=== PATIENT | male | born 1960 | race Caucasian/White ===

== ENCOUNTER 2025-05-29 08:15 | Outpatient (AMB) | payer OTHER, SELFPAY ==
--- NOTE | 2025-05-29 09:29 | A.OFFVIS_ITS ---
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 Allergies No Known Allergies Allergy (Verified 05/29/25 09:30) Medication List - Last Reconciled 05/29/25 by Nazario Mccray MD albuterol sulfate 90 mcg/actuation (Ventolin HFA) 2 puffs inhalation Q6H PRN cetirizine (All Day Allergy (cetirizine)) 10 mg PO DAILY PRN fluticasone propion-salmeterol 100-50 mcg/dose (Wixela Inhub) 1 inh inhalation BID montelukast 10 mg PO QPM omeprazole 40 mg PO DAILY [VITAMIN D PO] HPI 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: Details: Start time: 9.22am, End time: 10.07am ?I spent 40 minutes speaking with the patient on the phone plus an additional 5 minutes reviewing and updating records for a total of 45 minutes HPI Comments Details: Previous weight loss efforts: Nutrisystem, exercise Wakes up: 7am, Sleeps: 10pm Breakfast: 7am (eggs, oatmeal, toast) Lunch: 12pm (pork, salad) Dinner: 6-7pm (same as lunch) Snacks: 9pm (sweets, cheese with crackers, popcorn) Exercise: has a rowing machine Beverages:Coffee (2-3 cups/d with creamer), Tea: none, Soda: 1-2/wk diet Coke, Juice: rarely, ETOH: 1-2/d (Jin and tonic) PFSH Medical History (Updated 05/29/25 @ 09:58 by Nazario Mccray MD) Asthma Obstructive sleep apnea on CPAP GERD (gastroesophageal reflux disease) BMI 38.0-38.9,adult Obesity Surgical History (Updated 05/07/25 @ 09:55 by Yara Collins CMA) History of bunionectomy History of repair of anterior cruciate ligament Hx of colonoscopy Family History (Updated 05/07/25 @ 09:56 by Yara Collins CMA) Mother Hypertension Diabetes Father Obesity Social History (Updated 05/07/25 @ 09:56 by Yara Collins CMA) Alcohol intake: current Patient Tobacco Use Status: Never used Tobacco Telehealth Telehealth Telehealth Platform: Telephone Location of provider rendering services: practice address Location of patient: address on file Patient Identification confirmed using: Name, : Yes Telehealth method: voice only Patient verbally consented to treatment: Yes Patient verbally consented to billing insurance company: Yes Patient informed of any privacy concerns related to visit: Yes Minutes spent on Phone/Video with Pt.: 45 Assessment & Plan Assessment & Plan (1) Obesity: Code(s): E66.9 - Obesity, unspecified Category: Medical Qualifiers: Obesity type: due to excess calories Obesity classification: adult class 2 (BMI 35 - 39.9) Serious obesity comorbidity presence: with serious comorbidity Body mass index: BMI 38.0-38.9 Qualified Code(s): E66.01 - Morbid (severe) obesity due to excess calories; Z68.38 - Body mass index [BMI] 38.0- 38.9, adult Plan: 1.? As we discussed, based on your present BMI you are approximately 90lbs overweight. In my opinion, for any weight loss strategy to be successful should have a high probability to help you lose at least 80lbs out of 90lbs of the extra weight you carry. We discussed in detail the available therapeutic options: 1) our lifestyle intervention program that has an average weight loss of 10% in 3 months.?Some patients continue it for longer and have lost over 50lbs but this is not common. Our lifestyle program can be provided by me or by using our software zenaida, the [employer] zenaida. I will provide you with a link to use the zenaida if you choose to do so. We use protein shakes and protein bars to replace some of the meals of the day and cover your appetite better. We will decide together the exact combination. 2) Weight loss medications: these can be used in conjunction with our lifestyle program or you may choose to use them without following a lifestyle program from my program but your own. As we discussed, your [employer] insurance requires you to do the lifestyle program for 3 months before they approve the medications. Medicare does not cover GLP-1 agonists unless you have diabetes. We also discussed that you can self pay for the first 3 months and the cost is $249 for the first month and $499 for any other month thereafter. These payments go to the drug company directly and not to us. 3) We also discussed about the lap sleeve gastrectomy. In my opinion this is the best option to solve your problem based on your situation and should be used in conjunction with the two previous options. A good strategy to make this decision to proceed with surgery, is to set some goals with the lifestyle intervention and medication options: If you don't lose at least 10lbs the first 6 weeks after starting the program or at least 10% in 3 months.?I emphasized the importance of close follow-up, adherence to instructions and good communication. The surgery does not replace the need to change your lifestlyle which is the cause of the obesity problem. The surgery provides the motivation to try again to change your lifestyle, it reduces the appetite and make the transition to a better lifestyle easier and doubles the amount of weight you would lose compared to doing the lifestyle change without the surgery. You will need to be on a liquid diet with protein shakes for 2 weeks before surgery to maximize weight loss and boost your nutritional status to recover better from surgery and also for the first two weeks after surgery to let the stomach heal before we introduce other foods. After the first 2 weeks we will introduce protein bars and soft foods like scrambled eggs, cottage cheese and yogurt and after the 6th week will introduce meat, fish and cooked vegetables in small amounts. Over time you should be able to eat everything in small amounts. Side effects like nausea, vomiting, heartburn or abdominal pain are not common in the practice unless you are not following in the practice. This operation requires lifetime commitment to following in our practice and communication with me. You will much less weight and experience side effects if you don?t communicate or not following in the practice. Complications are rare and in our practice is about 1/10 of the national average.
[2025-05-29 10:05] VITALS: BMI 38.8
== END 2025-05-29 10:07 | disposition home or self-care (01) ==
LOC: HO.HBS 08:15
PROVIDERS: PCP Internal Medicine; Visit Provider Surgery
DX: E66.01 Morbid (severe) obesity due to excess calories (principal); Z68.38 Body mass index [BMI] 38.0-38.9, adult
CPT/HCPCS: 99204